=== PATIENT | female | born 1985 ===

== ENCOUNTER 2018-01-10 15:07 | Emergency (ER) | payer OTHER ==
[2015-11-30 12:03] VITALS: BMI 32.1
[2018-01-10 21:35] VITALS: BP 105/62; PULSE 103; RESP 18; O2SAT 97
== END 2018-01-10 16:40 | disposition home or self-care (01) ==
LOC: H.EROB2 15:07
DX: O34.63 Maternal care for abnormality of vagina, third trimester (principal); N89.8 Other specified noninflammatory disorders of vagina; O47.03 False labor before 37 completed weeks of gestation, third trimester; Z3A.33 33 weeks gestation of pregnancy

== ENCOUNTER 2018-03-05 18:58 | Inpatient (IN) | payer OTHER ==
[2018-03-05 19:58] VITALS: BMI 32.9
[2018-03-05 20:44] LABS: BASO % 0.3 % (0.0-2.0); EOS # 0.1 K/uL (0.0-0.7); EOS % 0.8 % (0.0-4.0); HEMOGLOBIN 11.9 g/dL (12.0-16.0); LYMPH # 1.9 K/uL (1.0-4.3); LYMPH % 21.1 % (20.0-40.0); MEAN CORPUSCULAR HEMOGLOBIN 29.7 pg (27.0-31.0); MEAN CORPUSCULAR HGB CONC 33.4 g/dL (33.0-37.0); MEAN PLATELET VOLUME 9.4 fl (7.2-11.7); MONO # 0.5 K/uL (0.0-0.8); MONO % 5.8 % (0.0-10.0); NEUT # 6.6 K/uL (1.8-7.0); RBC 4.02 Mil/uL (3.80-5.20); RED CELL DISTRIBUTION WIDTH 13.8 % (11.5-14.5); WHITE BLOOD COUNT 9.2 K/uL (4.8-10.8)
[2018-03-05 21:00] LABS: MEAN CELL VOLUME 88.8 fl (81.0-99.0)
--- NOTE | 2018-03-05 22:44 | OBADHP ---
Datetime: 03/05/2018 20:17 Admit Comment, IP Provider: 33 yo with IUP at 41+1 weeks gestational age with RENEA 02/25/18 pr esented with irregular contractions. Has passed mucus plug, denies loss of fluid, reports good movement. ROS: denies dizziness, headache, blurry vision, chest pain, shortness of breath, nausea, vomiting, diarrhea, constipation, pain/burning w/ urination. care with Dr. Lawrence; last visit Wed 02/28, last u/s 02/28. OBhx: 1 prior NVD, fullterm, 2016 Med hx: none Social hx: denies tobacco, alcohol, drug use Surg hx: laporoscopy for ovarian cyst removal Fam hx: HTN Allergies: nkda Meds: PNV, folic acid, calcium A: 32 yo with IUP at 41+1 weeks gestational age. P: Admit to labor and delivery unit for induction of labor; expectant management. Cervidil. OB Hospitalist Addendum: Pt seen and examined by me. Agree w/ above. 32 yo at 41+1 wks w / irregular ctxns. VE was 50% effeaced/ high. Cervidil placed at 10:35 pm. FHT reassuring. GBS ne gative. Gestation - Est Wks by US: 41.1 Vital Signs Provider: Reviewed EGA AdmitDate IP: 41.1 Datetime: 03/05/2018 19:50 Pelvic Type - PN: Adequate Extremities - PN: Normal Abdomen - PN: Normal Back - PN: Normal Breast - PN: Not Done Lungs - PN: Normal Heart - PN: Normal Thyroid - PN: Not Done Neurologic - PN: Normal HEENT - PN: Normal General - PN: Normal FHR - Baseline A Provider: 140 IP Chief Complaint: Uterine contractions NICHD Variability Prov Fetus A: Moderate 6-25bpm NICHD Accel Fetus A IP Provider: [id number] FHR Category Provider Fetus A: Category I Effacement, Provider: thick Station, Provider: high Genitourinary Exam: Normal IP Adm Impression: Postterm, intrauterine IP Admit Plan: Admit to unit Datetime: 01/10/2018 15:43 Presentation-Admit: Vertex Comments, ACOG Physical Exam: Bedside US: HUSSAIN _10. Pool Provider: Negative Nitrazine Provider: Negative Dilatation, Provider: 0
[2018-03-06] MEDS: Lactated Ringer's 1,000 ML IV SCH ×4 (08:00→18:50)
[2018-03-06] MEDS: Oxytocin 30 units/LR 500ML 30 UNITS/500 ML BAG IV SCH (10:30)
[2018-03-06] MEDS ORDERED: Fentanyl/Bupivacaine HCl 250 ML EPI ONE (18:43)
[2018-03-06] MEDS ORDERED: Lidocaine 2% PF (10 ml) Amp ONE (18:43)
[2018-03-06] MEDS ORDERED: Oxycodone/Acetaminophen 5/325 mg Tab PO PRN (22:10)
[2018-03-07 07:00] LABS: HEMOGLOBIN 11.1 g/dL (12.0-16.0); MEAN CELL VOLUME 89.2 fl (81.0-99.0); MEAN CORPUSCULAR HEMOGLOBIN 29.5 pg (27.0-31.0); MEAN CORPUSCULAR HGB CONC 33.1 g/dL (33.0-37.0); RBC 3.77 Mil/uL (3.80-5.20); RED CELL DISTRIBUTION WIDTH 13.9 % (11.5-14.5); WHITE BLOOD COUNT 14.6 K/uL (4.8-10.8)
--- NOTE | 2018-03-07 09:18 | OBPPN ---
Datetime: 03/07/2018 09:16 PP Pain Prov: Within normal limits PP Nausea Prov: Denies PP Flatus Prov: Yes PP BM Prov: Yes PP Breasts Prov: Normal PP Heart Prov: Normal PP Lungs Prov: Normal PP Abdomen/Uterus Prov: Normal PP Lochia Prov: Normal PP Vulva/Perineum Prov: Normal PP CVA Tenderness Prov: Normal PP Extremities Prov: Normal PP Progress Prov: Normal PP Impression Prov: Normal progression PP Plan Prov: Continue present management PP Progress Note Prov: H/H A; S/P day 1 PLAN: dishcarge in AM Vital Signs Provider PP: Reviewed; Within Normal Limits
[2018-03-07] MEDS: Oxytocin 30 units/LR 500ML 30 UNITS/500 ML BAG IV SCH (09:51)
[2018-03-08] MEDS ORDERED: Oxycodone/Acetaminophen 5/325 mg Tab PO PRN (02:05)
[2018-03-08 17:20] VITALS: BP 104/68; PULSE 91; RESP 19; TEMP 98; O2SAT 99
--- NOTE | 2018-03-09 10:03 | OBDCSUM ---
Datetime: 03/08/2018 11:48 Discharge Instructions, Provider: Routine instructions given Discharge Diagnosis, Provider: Term Delivered Contraception discussed, Prov: Yes
--- NOTE | 2018-03-09 10:04 | OBPPN ---
Datetime: 03/08/2018 10:01 PP Pain Prov: Within normal limits PP Nausea Prov: Denies PP Flatus Prov: Yes PP BM Prov: Yes PP Breasts Prov: Normal PP Heart Prov: Normal PP Lungs Prov: Normal PP Abdomen/Uterus Prov: Normal PP Lochia Prov: Normal PP Vulva/Perineum Prov: Normal PP CVA Tenderness Prov: Normal PP Extremities Prov: Normal PP Impression Prov: Normal progression PP Plan Prov: Continue present management PP Progress Note Prov: Postoperative #2 status post , patient recovering well. Discharge home Follow up in office in 6 weeks for checkup IP PP Procedures: None Vital Signs Provider PP: Reviewed; Within Normal Limits
== END 2018-03-08 12:45 | disposition home or self-care (01) | DRG 775 ==
LOC: H.EROB2 18:58 → H.L&D 19:58 → H.OB/GYN 03-07 00:05
PROVIDERS: ADMIT Obstetrics & Gynecology; ATTEND Obstetrics & Gynecology
PROC: 4A1HXCZ Monitoring of Products of Conception, Cardiac Rate, External Approach (ICD-10-PCS; 2018-03-05)
PROC: 10E0XZZ Delivery of Products of Conception, External Approach (ICD-10-PCS; principal; 2018-03-06)
PROC: 3E033VJ Introduction of Other Hormone into Peripheral Vein, Percutaneous Approach (ICD-10-PCS; 2018-03-06)
DX: O48.0 Post-term pregnancy (principal); Z37.0 Single live birth; Z3A.41 41 weeks gestation of pregnancy